=== PATIENT | male | born 2000 | race African-American/Black ===

== ENCOUNTER 2022-08-04 19:50 | Emergency (ER) | payer OTHER ==
[~2022-08-04] VITALS: Ht 177.8 cm; Wt 92.9 kg
[2022-08-04 20:21] VITALS: BP 143/73
[2022-08-04] MEDS ORDERED: NAPR500T7 MT (22:41)
== END 2022-08-04 23:13 | disposition home or self-care (01) ==
LOC: ER 19:50
DX: L72.3 Sebaceous cyst (principal)
CPT/HCPCS: 99282

== ENCOUNTER 2023-04-28 12:24 | Emergency (ER) | payer MEDICAID, OTHER ==
[~2023-04-28] VITALS: Ht 177.8 cm; Wt 82.0 kg
[~2023-04-28 12:24] MED LIST: NAPR500T7 MT
[2023-04-28 12:25] VITALS: BP 117/71; PULSE 115; RESP 18; TEMP 98.1; O2SAT 100
== END 2023-04-28 15:27 | disposition home or self-care (01) ==
LOC: ER 12:24
DX: R55 Syncope and collapse (principal)
CPT/HCPCS: 93005; 99283